=== PATIENT | female | born 1985 | race Caucasian/White ===

== ENCOUNTER 2019-08-07 20:27 | Emergency (ER) | payer SELFPAY ==
[~2019-08-07] VITALS: Ht 162.6 cm; Wt 56.2 kg
[2019-08-07] MEDS ORDERED: ACETAMINOPHEN 325 MG TABLET ONE (21:18)
[2019-08-07 21:24] VITALS: BP 109/69
[2019-08-07] MEDS ORDERED: ACETAMINOPHEN 325 MG TABLET PO ONE (21:30)
== END 2019-08-07 21:27 | disposition home or self-care (01) ==
LOC: ED 21:02
DX: J18.0 Bronchopneumonia, unspecified organism (principal); R07.89 Other chest pain; M79.10 Myalgia, unspecified site
CPT/HCPCS: 71045; 99283